=== PATIENT | male | born 1985 | race Caucasian/White ===

== ENCOUNTER 2019-09-18 15:21 | Outpatient (CLI) | payer OTHER, SELFPAY ==
--- NOTE | ~2019-09-18 | XR_ITS ---
EXAMINATION: XR lumbar spine 2-3V DATE: 09/18/2019 15:40 INDICATION: Left low back pain TECHNIQUE: Anteroposterior and lateral views of the lumbar spine, and cone-down lateral view of the l umbosacral junction were obtained. COMPARISON: None. FINDINGS: There are 4 nonrib-bearing lumbar segments. Alignment is normal. Vertebral body and disc heights are normal. No significant lumbar facet osteoarthritis appreciated. Sacrum and bilateral sacroiliac joint s are normal. Normal bowel gas pattern. IMPRESSION: 1. Developmental variant four nonrib-bearing lumbar segments. Otherwise unremarkable lumbar spine rad iographs. Reviewed, dictated and finalized at location A. 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 Developmental variant four nonrib-bearing lumbar segments. Otherwise unremar kable lumbar spine radiographs.
== END 2019-09-18 15:22 | disposition home or self-care (01) ==
LOC: CHSIMG 15:23
PROVIDERS: PCP Internal Medicine; Visit Provider Nurse Practitioner Family
DX: M54.5 Low back pain (principal)
CPT/HCPCS: 72100

== ENCOUNTER 2020-10-06 17:07 | Outpatient (CLI) | payer OTHER, SELFPAY ==
--- NOTE | ~2020-10-06 | XR_ITS ---
EXAMINATION: XR_CERV2-3V_CR DATE: 10/06/2020 17:27 INDICATION: Neck pain. Right shoulder pain. TECHNIQUE: 3 views of cervical spine were obtained. COMPARISON: None. FINDINGS: There is 8 degrees levocurvature of cervicothoracic spine. There is kyphosis of cervical sp ine. There is 2 mm retrolisthesis of C5 on C6. Vertebral body heights are normal. There is mildly dec reased disc height at C5-C6. At C5-C6, there is moderate bilateral uncovertebral joint osteoarthritis . The facet joints are unremarkable. There is mild central canal stenosis at C5-C6. IMPRESSION: 1. Mild cervical spondylosis. Reviewed, dictated and finalized at location A. 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
--- NOTE | ~2020-10-06 | XR_ITS ---
EXAMINATION: XR shoulder RT min 2V DATE: 10/06/2020 17:27 INDICATION: Right shoulder pain. TECHNIQUE: 4 views of right shoulder were obtained. COMPARISON: None. FINDINGS: Bone alignment is normal. No fracture. Joint spaces are well maintained. IMPRESSION: 1. Normal right shoulder. Reviewed, dictated and finalized at location A. 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 Normal right shoulder.
== END 2020-10-06 17:08 | disposition home or self-care (01) ==
LOC: CHSLAB 17:10
PROVIDERS: PCP Internal Medicine; Visit Provider Internal Medicine
DX: M25.511 Pain in right shoulder (principal); M54.2 Cervicalgia; M47.812 Spondylosis without myelopathy or radiculopathy, cervical region
CPT/HCPCS: 72040; 73030

== ENCOUNTER 2020-10-12 16:54 | Outpatient (RCR) | payer OTHER, SELFPAY ==
[2020-10-12 17:00] VITALS: BP_SYST 170
--- NOTE | 2020-10-12 18:06 | PTOPEVAL ---
Thank you for referring Eugene Borges to [facility].? The patient is scheduled to be seen for therapy? __2__x/week for 8 visits. Please review, sign, date and return this plan of care YRIS. I agree with and certify that the following plan of care is medically necessary. Referring Physician Date Admitting Provider: Attending Provider: Rc Arroyo MD Referring Provider: *PT Outpatient Evaluation Start: 10/12/20 12:45 Freq: Status: Active Protocol: Document 10/12/20 17:00 ACR (Rec: 10/12/20 18:05 ACR [id number]) Therapy Assessment Status Assessment Status Assessment Status Evaluation Evaluation Information Problem Onset 09/14/20 Subjective Information Patient states that his Query Text:As Reported By Patient/ shoulder pain started a little Family over a year ago, but had a recent flare up about a month ago that led him to go to the doctor. He had an x-ray done which showed some swelling in the shoulder and arthritis in the R neck. Patient reports he has had some radicular pain that goes into the hand and last week he dropped a drill while working. Patient states that working overhead, sleeping, looking down and looking up (tieing his shoes) all bother him. 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 Hand Dominance Right Activity of Daily Living Ability Independent Indoor/Home Mobility Independent Community Mobility Independent Stairs Ability Independent Functional Cognition (Planning, Shopping Independent , Taking Medications) Cooking Yes Cleaning Yes Laundry Yes Shopping Yes Driving Yes Pain Assessment Timing of Pain Assessment Timing of Pain Assessment Assessment Pain Scale Pain Scale Used Numeric (1 - 10) Self Report Pain Assessment Right Neck Reported Pain Level 2 Pain Description Aching,Dull,Numbness,Stabbing, Tingling Lowest Pain Intensity 2 Greatest Pain Intensity 4 Pain Score Pain Score 2: Self Report Interventions Used Interventions Used By Clinicians Activity or ADL's,Education,
--- NOTE | 2020-12-02 08:28 | PCPTNOTE ---
The patient participated in 3 visits for neck pain with radicular symptoms. He was called and he stated he would like to be discharged at this time due to having too much going on at this time. Please refer to last treatment note for patient's discharge status. Thank you, ADAMA DentonT
== END 2020-11-02 09:13 | disposition home or self-care (01) ==
LOC: CHSPT 16:54
PROVIDERS: PCP Internal Medicine; Visit Provider Internal Medicine
DX: M54.2 Cervicalgia (principal); M25.511 Pain in right shoulder
CPT/HCPCS: 97014; 97110; 97140; 97161; G0283

== ENCOUNTER 2021-09-09 15:20 | Outpatient (CLI) | payer OTHER, SELFPAY ==
--- NOTE | ~2021-09-09 | US_ITS ---
US retroperitoneal comp 09/09/2021 15:35 Procedure: Realtime transabdominal ultrasound of the kidneys and bladder. Indication: Renal insufficiency Comparison: No prior studies for comparison. Findings: Renal echotexture is normal bilaterally without hydronephrosis, contour deforming mass or r enal calculus. The right kidney measures 9.1 cm and left kidney measures 9.4 cm. Bladder wall is mil dly prominent, although not well distended. Impression: 1: Unremarkable renal ultrasound. No stones, masses or hydronephrosis. Reviewed, dictated and finalized at location B. 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 No stones, masses or hydronephrosis.
== END 2021-09-09 15:21 | disposition home or self-care (01) ==
LOC: CHSIMG 15:22
PROVIDERS: PCP Internal Medicine; Visit Provider Internal Medicine
DX: N28.9 Disorder of kidney and ureter, unspecified (principal)
CPT/HCPCS: 76770

== ENCOUNTER 2022-10-10 10:15 | Outpatient (CLI) | payer OTHER, SELFPAY ==
--- NOTE | ~2022-10-10 | XR_ITS ---
Lumbosacral Spine: AP and lateral views Clinical History: Pain Findings: The normal lordotic curve is maintained. The vertebral bodies and posterior elements are i ntact. The intervertebral disc spaces are preserved. The sacroiliac joints are normally outlined. Impression: No significant abnormality. Reviewed, dictated and finalized at [facility]. 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
== END 2022-10-10 10:16 | disposition home or self-care (01) ==
LOC: CHSIMG 10:17
PROVIDERS: PCP Internal Medicine; Visit Provider Internal Medicine
DX: M54.50 Low back pain, unspecified (principal)
CPT/HCPCS: 72100

== ENCOUNTER 2022-10-16 15:55 | Outpatient (RCR) | payer OTHER, SELFPAY ==
--- NOTE | 2022-10-16 16:30 | PTOPEVAL1 ---
Assessment and note entered by Jaciel Hinds Evaluation Information Assessment Status Evaluation Diagnosis low back pain Onset 09/26/22 Subjective Information Pt. reports he was carrying drywall into a basement about 3 weeks ago and began to notices low back pain after. He describes pain across the low back, but is worst on the left side. He states that pain is most intense with changing positions. He notices pain most when getting out of a chair or standing for too long. 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 He has attempted to make modfications in his work and avoids any heavy lifting at this time. He states that pain wakes him at night, especially if he roles. He states that he has not had any previous back pain. He states that his goal for therapy is to reduce his low back pain. Reported Pain Level Pain Score 5: Self Report Assessment PT Clinical Summary Pt. is a 37 year old male who enters the clinic with low back pain. He presents with impaired flexibility, impaired strength, impaired postural awareness, and pain. continued skilled PT is indicated in order to improve these areas to allow the pt. to be able to complete all IADL's with improved comfort and efficiency. Plan of Care Interventions Electrical Stimulation,Hot Pack/Cold Pack,Manual Therapy,Neuro Re-education,Patient/Caregiver Educati,Therapeutic Activities,Therapeutic Exercise,Self-Care/Home Management PT Services Indicated Yes Treatment Frequency and 3x/week x 12 visits Duration These treatments will address the objective and functional deficits as defined above. The patient will be advanced safely and appropriately in order for the patient to progress towards his/her prior level of function. Additional exercises will be introduced and as well as a comprehensive home exercise program upon discharge, if needed, ?to ensure carryover of functional gains achieved in the clinic. This treatment plan has been reviewed and agreement upon by the patient.
--- NOTE | 2022-11-14 16:15 | PTOPEVAL1 ---
Assessment and note entered by Jaciel Hinds Evaluation Information Assessment Status Progress Diagnosis low back pain Onset 09/26/22 Subjective Information Pt. reports that he is feeling better. He still notes most pain with long periods of standing. He continues to describe pain across the low back. He reports that he was able to participate in a fishing tournament over the weekend and noted he could stand longer before expereincing pain. His goal remains to decrease his low back pain. Reported Pain Level Pain Score 2: Self Report Assessment PT Clinical Summary Pt. has attended a total of 9 treatment sessions. He has demonstrated improvemet in reports of pain , as well as strength. Pt. continues to present with mild discomfort and has recently been advanced regarding postural awareness. Continue with remaining 3 visits on current POC to further advance strength. Plan of Care Interventions Electrical Stimulation,Hot Pack/Cold Pack,Manual Therapy,Neuro Re-education,Therapeutic Activities, Therapeutic Exercise PT Services Indicated Yes Treatment Frequency and Continue for 3 remaining visits focused on core Duration strength and postural awareness These treatments will address the objective and functional deficits as defined above. The patient will be advanced safely and appropriately in order for the patient to progress towards his/her prior level of function. Additional exercises will be introduced and as well as a comprehensive home exercise program upon discharge, if needed, ?to ensure carryover of functional gains achieved in the clinic. This treatment plan has been reviewed and agreement upon by the patient.
--- NOTE | 2022-11-26 08:13 | PTOPREEVAL ---
Assessment and note entered by JT File, PT Evaluation Information Assessment Status Re-evaluation Diagnosis low back pain Onset 09/26/22 Subjective Information patient reports he feels alright this date. he reports nothing hurts when he is in PT, but reports he continues to have increased pain in the lower back with getting out of a chair/couch at home. he reports he has not returned to his prior level lifting. except for today, he reports he has had no pain for the last 5 days. Assessment PT Clinical Summary mr. crawford presents to skilled PT for his 12th skilled therapy visit. although today his pain is increased, he reports less pain over the last week . he has adjusted his work activities to not require any daily lifting. however, he still struggles with transfers in and out of chair/couch at home. he has made progress towards goals, but has met less than 50% of goals thus far. he would benefit from continued skilled PT to further work on return to his full PLOF/QOL. Plan of Care Interventions Electrical Stimulation,Hot Pack/Cold Pack,Manual Therapy,Neuro Re-education,Therapeutic Activities, Therapeutic Exercise PT Services Indicated Yes Treatment Frequency and continue skilled PT 2x weekly for 4 more visits Duration These treatments will address the objective and functional deficits as defined above. The patient will be advanced safely and appropriately in order for the patient to progress towards his/her prior level of function. Additional exercises will be introduced and as well as a comprehensive home exercise program upon discharge, if needed, ?to ensure carryover of functional gains achieved in the clinic. This treatment plan has been reviewed and agreement upon by the patient.
--- NOTE | 2022-12-22 16:52 | PTOPREEVAL ---
Assessment and note entered by Telma Denis DPT Evaluation Information Assessment Status Re-evaluation Diagnosis low back pain Onset 09/26/22 Subjective Information Patient reports he had an MRI done and the MD wants him to resume PT. Patient reports if pain does not improve with they will talk about surgery . MRI shows disc extrusion at L5-S1 with S1 nerve root effected. He reports difficulty with bending down, squatting and sitting for prolonged periods . Patient to return to MD in 2 months Reported Pain Level Pain Score 3: Self Report Assessment PT Clinical Summary Patient returns to PT today after having an MRI that showed disc extrusion at L5-S1. He presents with B hip weakness, decreased LE flexibility and decreased lumbar spine ROM limiting his ability to squat for house hold activities and sit for long periods of time. He would benefit from skilled PT to address impairments and return to PLOF. Plan of Care Interventions Electrical Stimulation,Hot Pack/Cold Pack,Manual Therapy,Neuro Re-education,Therapeutic Activities, Therapeutic Exercise PT Services Indicated Yes Treatment Frequency and 2x weekly for 10 visits Duration These treatments will address the objective and functional deficits as defined above. The patient will be advanced safely and appropriately in order for the patient to progress towards his/her prior level of function. Additional exercises will be introduced and as well as a comprehensive home exercise program upon discharge, if needed, ?to ensure carryover of functional gains achieved in the clinic. This treatment plan has been reviewed and agreement upon by the patient.
== END 2023-01-09 19:00 | disposition still patient (30) ==
LOC: CHSPT 15:55
PROVIDERS: PCP Internal Medicine; Visit Provider Internal Medicine
DX: M54.50 Low back pain, unspecified (principal)
CPT/HCPCS: 97014; 97110; 97112; 97140; 97161; G0283

== ENCOUNTER 2022-12-14 07:56 | Outpatient (CLI) | payer OTHER, SELFPAY ==
--- NOTE | ~2022-12-14 | MR_ITS ---
EXAMINATION: MR lumbar spine wo con DATE: 12/14/2022 09:04 INDICATION: Low back pain post lifting injury 2 1/2 weeks prior. TECHNIQUE: Magnetic resonance imaging (MRI) of the lumbar spine was performed without intravenous con trast. Sequences included sagittal T2-weighted FSE, sagittal T2-weighted FS FSE, sagittal T1-weighted FSE, and axial T2-weighted FSE. COMPARISON: Radiographs dated 10/10/2022 FINDINGS: There are 4 nonrib-bearing lumbar segments. Alignment is normal. Vertebral body heights are normal. Normal marrow signal. Mild disc desiccation and mild disc height loss with annular fissure at L4-S1. The conus medullaris terminates at T12. There is normal signal in the caudal spinal cord. Paravertebr al soft tissues are unremarkable. The following disc levels are specifically discussed: T11-T12: The disc does not extend beyond the endplate margins. There is no facet osteoarthritis. Ther e is no neural foraminal stenosis. There is no central canal stenosis. T12-L1: The disc does not extend beyond the endplate margin. There is no facet joint osteoarthritis. There is no neural foraminal stenosis. There is no central canal stenosis. L1-L2: Disc is mildly bulging. There is no facet joint osteoarthritis. There is mild bilateral neural foraminal stenosis due in part to short pedicles. There is no central canal stenosis. L2-L3: Disc is minimally bulging. There is no facet joint osteoarthritis. There is mild bilateral lyn ral foraminal stenosis resulting primarily from short pedicles. There is no central canal stenosis. L3-L4: Disc is mildly bulging. There is no facet joint osteoarthritis. There is wall to moderate bila teral neural foraminal stenosis due in part to short pedicles. There is no central canal stenosis. L4-S1: Annular fissure with left paracentral disc extrusion with disc material extending to right and 3 mm cephalad and caudal to the endplate margins and which narrows the left lateral recess exerting mass effect upon the traversing left S1 nerve root. There is mild left facet joint osteoarthritis. Th ere is mild bilateral neural foraminal stenosis. There is mild central canal stenosis. IMPRESSION: 1. There are only 4 nonrib-bearing lumbar segments which is normal developmental variant. 2. Mild spondylosis at L4-S1 with annular fissure and left paracentral disc extrusion which exerts ma ss effect upon the traversing left S1 nerve root. Correlate clinically for muscle weakness of plantar flexion, sensory change of the lateral foot and small toe, and depressed ankle reflex. 3. Minimal spondylosis in the more cephalad lumbar spine with neural foraminal stenosis at a few leve ls as detailed above due to in part to congenitally small pedicles. Reviewed, dictated and finalized at location L. IMPRESSION: 1. There are only 4 nonrib-bearing lumbar segments which is normal developmenta l variant. 2. Mild spondylosis at L4-S1 with annular fissure and left paracentral disc ext rusion which exerts mass effect upon the traversing left S1 nerve root. Correla te clinically for muscle weakness of plantar flexion, sensory change of the lat eral foot and small toe, and depressed ankle reflex. 3. Minimal spondylosis in the more cephalad lumbar spine with neural foraminal stenosis at a few levels as detailed above due to in part to congenitally small pedicles.
== END 2022-12-14 07:57 | disposition home or self-care (01) ==
LOC: CHSIMG 07:58
PROVIDERS: PCP Internal Medicine; Visit Provider Nurse Practitioner Family
DX: M54.50 Low back pain, unspecified (principal); M43.06 Spondylolysis, lumbar region
CPT/HCPCS: 72148

== ENCOUNTER 2023-01-16 16:04 | Outpatient (RCR) | payer OTHER, SELFPAY | END 2023-02-07 10:23 | disposition home or self-care (01) | LOC: CHSPT 16:04 | PROVIDERS: PCP Internal Medicine; Visit Provider Internal Medicine | DX: M54.50 Low back pain, unspecified (principal) | CPT/HCPCS: 97110; 97112 ==

== ENCOUNTER 2025-01-28 15:45 | Emergency (ER) | payer BC, SELFPAY ==
[2025-01-28 15:45] VITALS: BP 126/71; PULSE 63; RESP 16; TEMP 36.8; O2SAT 99
--- NOTE | 2025-01-28 16:00 | ED_ITS ---
HPI - Skin/Abscess/Foreign Bdy General Chief complaint: Skin/Abscess/Foreign Body Stated complaint: fishhook in hand Time Seen by Provider: 01/28/25 15:59 Source: patient Mode of arrival: ambulatory Limitations: no limitations History of Present Illness HPI narrative: 39-year-old male with a history depression, CKD, anemia presents to the ED with -- facial cut in his left hypothenar eminence. Onset (ago): minute(s) ( 30 minutes ago) Tetanus up to date: no Relieving factors: none Exacerbating factors: none Treatments prior to arrival: none Related Data Allergies Allergy/AdvReac Type Severity Reaction Status Date / Time sulfamethoxazole (From Allergy Mild Rash Verified 01/28/25 15:58 ) trimethoprim (From ) Allergy Mild Rash Verified 01/28/25 15:58 Penicillins Allergy Unknown Unknown Verified 01/28/25 15:58 Review of Systems Review of Systems: All systems reviewed & are unremarkable except as noted in HPI and below PMFSH Past Medical History Medical History Anemia CKD (chronic kidney disease) Depression Exam Narrative: vitals stable Const: General: no acute distress Orientation/consciousness: patient oriented x3 Limitations: no limitations HENMT: Head: normal to inspection Ears: external ears normal Face/Nose/Sinus: Normal external nose present Face and sinus: normal facial exam Mouth: Yes Normal oral and palatal mucosa present Throat: posterior oropharynx normal Eyes: Conjunctivae: conjunctivae normal Pupils: Equal, round and reactive pupils present EOM: EOMs intact bilaterally Neck: Neck: no lymphadenopathy and no meningeal signs Chest: Chest palpation & inspection: normal inspection of the chest Resp: Effort & Inspection: normal respiratory effort Auscultation: clear to auscultation bilaterally Cardio: Rate: regular rate Rhythm: regular rhythm GI: GI Palp: Yes Soft to palpation Auscultation: normal bowel sounds Other: tenderness/ rigidity /rebound. : General: Yes no CVA tenderness Back/Spine/Pelvis: Back: no CVA tenderness Skin: General skin exam: normal color Rashes: no rashes Wounds: no wounds Neuro: General: patient oriented x3, moves all extremities, no meningeal signs, no focal motor deficits and CN's II-XI intact bilaterally Speech: normal speech Extrem: General: normal to inspection and no clubbing, cyanosis or edema Psych: Mental Status: mental status grossly normal Affect: normal affect Attitude: cooperative Course Course Emergency Course: Left hand fishhook Vital Signs Vital signs: Vital Signs Temperature 36.8 C 01/28/25 15:45 Pulse Rate 63 01/28/25 15:45 Respiratory Rate 16 01/28/25 15:45 Blood Pressure 126/71 01/28/25 15:45 Pulse Oximetry 99 01/28/25 15:45 Oxygen Delivery Room Air 01/28/25 15:45 Temperature 36.8 C 01/28/25 15:45 Pulse Rate 63 01/28/25 15:45 Respiratory Rate 16 01/28/25 15:45 Blood Pressure 126/71 01/28/25 15:45 Pulse Oximetry 99 01/28/25 15:45 Oxygen Delivery Room Air 01/28/25 15:45 Procedures Foreign Body Removal Foreign Body #1: Foreign Body Removal Date: 01/28/25 Foreign Body Removal Time: 16:06 Site: left and upper extremity Description of foreign body: fish hook Sedation/Analgesia: none and other ( local infiltration with 1% lidocaine.) Technique: removal with forceps MDM - Skin/Abscess/Foreign Bdy MDM Narrative Medical decision making narrative: Left hand fishhook-- removed Differential Diagnosis Differential diagnosis: Likely other ( foreign body left hand) Discharge Plan Discharge Clinical Impression: Foreign body of hand, left Qualifiers: Encounter type: initial encounter Qualified Code(s): S60.552A - Superficial foreign body of left hand, initial encounter Patient Disposition: Home Condition: Stable Instructions: Antibiotic Form Patient Language: [place]an Follow-up/Referrals: Rc Arroyo MD [Primary Care Provider] - Time of Disposition: 16:17
[2025-01-28] MEDS: LIDOCAINE 1% LOCAL INJ 10 ML VIAL 3 ML INFILTRATE (16:11)
[2025-01-28] MEDS: TETANUS,DIPHTHERIA,AC PERTUSSIS ADULT 0.5 ML (ADACEL) IM (16:12)
--- OUTSIDE RECORDS SUMMARY | 2025-01-28 17:27 | XMS_ITS | Referral Summary ---
Author Organization [facility] Medical Office Building A Address [address] [place] [address] Care Team Providers Care Classroom Teacher Name Role Phone Rc Arroyo MD Primary Care Provider Encounters Date Type Department Care Team Description 12/26/2024 9:15 AM CDT Office Visit [facility] - [address] [address] Crista Forman DO Otitis externa, fungal, left ear (Primary Dx) 12/19/2024 8:45 AM CDT Office Visit [facility] [address], [place] [address] Crista Forman DO Otitis externa, fungal, left ear (Primary Dx) from Last 3 Months Allergies Active Allergy Reactions Criticality Noted Date Comments Penicillins Hives Reaction: Hives, Sulfamethoxazole Hives Reaction: hives, Trimethoprim Hives Reaction: hives, Medications clotrimazole (LOTRIMIN) 1 % external solutionIndicat ions:Otitis externa, fungal, left ear Apply topically 2 (two) times a day 30 mL 5 12/20/19 26 Active Active Problems Problem Noted Date Diagnosed Date Myringitis 07/03/2023 Assessment & Plan (08/01/2023 1:41 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): Avoid ear cleaning techniques Avoid water to ears May wear hearing aids Follow up with further ear drainage Assessment & Plan (07/03/2023 3:12 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): Avoid ear cleaning techniques Avoid water to ears Avoid hearing aid in the left ear Start Levaquin daily with a meal Stay well hydrated Consider starting ear drops based on culture results taken today from the left ear Otitis externa, fungal, left ear 06/18/2023 Assessment & Plan (12/26/2024 9:16 AM CDT): Continue Lotrimin for one more week Avoid ear cleaning techniques Avoid water to ears Follow up as needed Restart Hearing aid in one week Assessment & Plan (12/19/2024 1:00 PM CDT): Lotrimin 7 drops into the Left ear twice daily for 14 days How to Use Ear Drops discussed and Handout provided Assessment & Plan (06/18/2023 1:59 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): Nystatin powder placed today to the left ear Avoid ear cleaning techniques Avoid water to ears Avoid hearing aid in the left ear until follow up Follow up in 2-3 weeks to recheck left ear Start lotrimin drops if no improvement Otorrhea of left ear 12/12/2022 Assessment & Plan (04/09/2024 8:27 AM CDT): Avoid ear cleaning techniques Avoid water to ears Continue hearing aids follow up as needed Assessment & Plan (02/21/2024 1:23 PM CDT): Avoid ear cleaning techniques Avoid water to ears Restart use of Left sided Hearing aid in one week Doxycycline twice daily for 14 days Follow up in one month for left ear check Assessment & Plan (08/01/2023 1:41 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): Avoid ear cleaning techniques Avoid water to ears May wear hearing aids Follow up with further ear drainage Assessment & Plan (07/03/2023 3:12 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): Avoid ear cleaning techniques Avoid water to ears Avoid hearing aid in the left ear Start Levaquin daily with a meal Stay well hydrated Consider starting ear drops based on culture results taken today from the left ear Assessment & Plan (01/02/2023 3:07 PM CDT): Resolved today Avoid ear cleaning techniques Continue hearing aids Follow up in one year, earlier with ear drainage Assessment & Plan (12/12/2022 4:25 PM CDT): Prescription medications sent to Pharmacy today: Ciprofloxacin and Dexamethasone 5 drops into EACH EAR, NOT EYE, twice daily for 14 days Follow up in Office to recheck Avoid ear cleaning techniques Avoid water to ears Continue hearing aids, make sure to cleanse hearing aids at night and make sure they dry off at night How to Use Ear Drops discussed and Handout provided Thrombosed external hemorrhoid 03/23/2017 Assessment & Plan (03/23/2017 11:58 AM CDT): Primary care provider was called to the bedside to review physical exam findings to determine whether not surgical referral is indicated. Primary care provider completed additional rectal exam and recommended conservative measures with warm water soaks 2 to 3 times a day. Topical Anusol-HC rectal cream. Avoid straining for bowel movements. Avoid heavy lifting. Closely follow up here for repeat evaluation in 1 week. Although, he has been instructed to contact the office in the interim with any additional questions or concerns. Tobacco dependence syndrome 12/27/2013 Overview (11/16/2016): TOBACCO USE DISORDER Mitral valve disease 12/27/2013 Overview (11/17/2016): MITRAL VALVE DIS NEC/NOS Depression 09/19/2012 Overview (11/17/2016): Depression Immunizations Immunization Administration Dates Next Due Hep B, Adolescent or Pediatric 05/13/1998,1997 Td, adsorbed 03/08/1998 Social History Tobacco Use Types Packs/Day Years Used Date Smoking Tobacco: Every Day Smokeless Tobacco: Never Tobacco Cessation:Ready to Q uit: Not Asked; Counseling Given: Not Answered Alcohol Use Standard Drinks/Week Comments Yes 0 (1 standard drink = 0.6 oz pur e alcohol) Sex and Gender Information Value Date Recorded Sex Assigned at Not on file Legal Sex Male 11:54 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 Gender Identity Not on file Sexual Orientation Not on file Last Filed Vital Signs Vital Sign Reading Time Taken Comments Blood Pressure 122/78 04/09/2024 8:17 AM CDT Pulse 73 04/09/2024 8:17 AM CDT Temperature 36 C (96.8 F) 04/09/2024 8:17 AM CDT Respiratory Rate 18 02/21/2024 1:01 PM CDT Oxygen Saturation 99% 04/09/2024 8:17 AM CDT Inhaled Oxygen Concentration - - Weight 64.4 kg (142 lb) 12/19/2024 8:36 AM CDT Height 177.8 cm (5' 10) 12/19/2024 8:36 AM CDT Body Mass Index 20.37 12/19/2024 8:36 AM CDT Plan of Treatment Not on file Insurance [employer] OOS Care Teams Classroom Teacher Relationship Specialty Start Date End Date Rc Arroyo MD PCP - General Internal Medicine 01/02/23
--- OUTSIDE RECORDS SUMMARY | 2025-01-28 17:27 | XMS_ITS | Clinical Summary ---
Author Organization [facility] Address [address], [address] [address] Phone Care Team Providers Care Communications Coordinator Name Role Phone Rc Arroyo MD Primary Care Provider [phone] Allergies Active Allergy Reactions Criticality Noted Date Comments Penicillins Hives 01/01/2019 Reaction: Hives, Sulfamethoxazole Hives 01/01/2019 Reaction: hives, Trimethoprim Hives 01/01/2019 Reaction: hives, Medications montelukast (SINGULAIR) 10 MG Tablet 12/02/2018 Active sertraline (ZOLOFT) 50 MG Tablet 12/25/2018 Active morphine 100 MG/5ML SolutionIndicat ions:Terminal care Take 0.25 mL by mouth every 3 hours as needed for Moderate or more severe pain. 30 mL 06/30/2024 Active LORazepam (ATIVAN) 0.5 MG TabletIndicatio ns:Terminal care Take 1 Tablet by mouth every 4 hours as needed for Anxiety. 30 Tablet 06/30/2024 Active Social History Tobacco Use Types Packs/Day Years Used Date Smoking Tobacco: Every Day Cigarettes 1 18 Smokeless Tobacco: Never Alcohol Use Standard Drinks/Week Comments Not Currently 0 (1 standard drink = 0.6 oz pur e alcohol) Sex and Gender Information Value Date Recorded Sex Assigned at Not on file Legal Sex Male 7:57 PM CDT Gender Identity Not on file Sexual Orientation Not on file Last Filed Vital Signs Vital Sign Reading Time Taken Comments Blood Pressure 110/80 01/01/2019 10:37 AM CDT Pulse 71 01/01/2019 10:37 AM CDT Temperature 36.6 C (97.8 F) 01/01/2019 10:37 AM CDT Respiratory Rate 16 01/01/2019 10:37 AM CDT Oxygen Saturation 98% 01/01/2019 10:37 AM CDT Inhaled Oxygen Concentration - - Weight 68 kg (150 lb) 01/01/2019 10:37 AM CDT Height 177.8 cm (5' 10) 01/01/2019 10:37 AM CDT Body Mass Index 21.52 01/01/2019 10:37 AM CDT Plan of Treatment Health Maintenance Due Date Last Done Comments Hepatitis C Virus (HCV) Screening 1983 Human Papillomavirus (HPV) Immunization (1 - Male 3-dose series) 1998 Hepatitis B Immunization (1 of 3 - 19+ 3-dose series) 2002 SARS-COV-2 Immunization ( - season) 2024 Influenza Immunization (Seas on Ended) 2025 Respiratory Syncytial Virus (RSV) Immunization (Adult) (1 - 1-dose 75+ series) 2058 DTaP/Tdap/Td Immunization Discontinued 01/23/2017 TdaP Immunization Completed 01/23/2017 Meningococcal Immunization (ACWY) Aged Out No longer eligible based on patient's age to complete this topic Pneumococcal Immunization Combined Aged Out No longer eligible based on patient's age to complete this topic Rotavirus Immunization Aged Out No lo nger eligible based on patient's age to complete this topic Insurance MEDICAID AETNA [facility] Care Teams Communications Coordinator Relationship Specialty Start Date End Date Rc Arroyo MD [address] [id number] PCP - General Internal Medicine 12/06/18
--- OUTSIDE RECORDS SUMMARY | 2025-01-28 17:27 | XMS_ITS | Clinical Summary ---
Author Organization [facility] Medical Office Building A Address [address] [place] [address] Care Team Providers Care Diesel Plant Operator Name Role Phone Rc Arroyo MD Primary Care Provider [phone] Allergies Active Allergy Reactions Criticality Noted Date Comments Penicillins Hives Reaction: Hives, Sulfamethoxazole Hives Reaction: hives, Trimethoprim Hives Reaction: hives, Medications clotrimazole (LOTRIMIN) 1 % external solutionIndicat ions:Otitis externa, fungal, left ear Apply topically 2 (two) times a day 30 mL 5 12/20/19 26 Active Active Problems Problem Noted Date Diagnosed Date Myringitis 07/03/2023 Assessment & Plan (08/01/2023 1:41 PM COMPUTED TOMOGRAPHY TECHNOLOGIST): Avoid ear cleaning techniques Avoid water to ears May wear hearing aids Follow up with further ear drainage Assessment & Plan (07/03/2023 3:12 PM COMPUTED TOMOGRAPHY TECHNOLOGIST): Avoid ear cleaning techniques Avoid water to [...] provided Assessment & Plan (06/18/2023 1:59 PM COMPUTED TOMOGRAPHY TECHNOLOGIST): Nystatin powder placed today to the left [...] check Assessment & Plan (08/01/2023 1:41 PM COMPUTED TOMOGRAPHY TECHNOLOGIST): Avoid ear cleaning techniques Avoid water to ears May wear hearing aids Follow up with further ear drainage Assessment & Plan (07/03/2023 3:12 PM COMPUTED TOMOGRAPHY TECHNOLOGIST): Avoid ear cleaning techniques Avoid water to [...] DIS NEC/NOS Depression 09/19/2012 Overview (11/17/2016): Depression Encounters Date Type Department Care Team Description 12/26/2024 9:15 AM CDT Office Visit [facility] - [address] [place] [address] Crista Forman, Otitis externa, fungal, left ear (Primary Dx) 12/19/2024 8:45 AM CDT Office Visit [facility] - [address] [place] [address] Crista Forman, Otitis externa, fungal, left ear (Primary Dx) from Last 3 Months Immunizations Immunization Administration Dates Next Due Hep B, Adolescent or Pediatric 05/13/1998,1997 Td, adsorbed 03/08/1998 Surgical History Surgery Date Site/Laterality Comments MYRINGOTOMY W/TYMPANOSTOMY TUBE INSERTION myringotomy tubes Medical History Medical History Date Comments Hx Other Medical ear drum replac ements 11 years ago Hx Other Medical BL Ear surgery Family History Medical History Relation Name Comments Other Brother 3 Alive and well; Other Brother 4 Alive and well; Other Father 2 Alive and well; Prostate cancer Father 2 Cancer, pros denny; Other Mother 2 Alive and well; Other Sister obstructive hyd rocephalus; Cause of : obstructive hydrocephalus Relation Name Status Comments Brother 1 Alive Brother 2 Alive Brother 3 Brother 4 Father 1 Alive Father 2 Mother 1 Alive Mother 2 Sister Social History Tobacco Use Types Packs/Day Years Used Date Smoking Tobacco: Every Day Smokeless Tobacco: Never Tobacco Cessation:Ready to Q uit: Not Asked; Counseling Given: Not Answered Alcohol Use Standard Drinks/Week Comments Yes 0 (1 standard drink = 0.6 oz pur e alcohol) Sex and Gender Information Value Date Recorded Sex Assigned at Not on file Legal Sex Male 11:54 PM COMPUTED TOMOGRAPHY TECHNOLOGIST Gender Identity Not on file Sexual Orientation Not on file Obstetrics History Last Filed Vital Signs Vital Sign Reading [...] 12/19/2024 8:36 AM CDT Plan of Treatment Health Maintenance Due Date Last Done Comments Hepatitis C Screening 1983 Prostate Cancer Screening-PSA 1983 Varicella Vaccines (1 of 2 - 13+ 2-dose series) 1996 Regular Well Visit/Exam 18-64 2001 Pneumococcal vaccine <65 (1 of 2 - PCV) 2002 Depression Screening 09/07/2018 09/07/2017, 03/23/2017 Influenza Vaccine (Season Ended) 2025 DTaP/Tdap/Td Vaccine (2 - Td or Tdap) 01/23/2027 01/23/2017, 03/08/1998 Hepatitis B Screening Completed 05/13/1998 , 03/08/1998 HPV Vaccines Aged Out No longer eligi ble based on patient's age to complete this topic Insurance [employer] OOS Care Teams Diesel Plant Operator Relationship Specialty Start Date End Date Rc Arroyo MD PCP - General Internal Medicine 01/02/23
== END 2025-01-28 16:25 | disposition home or self-care (01) ==
LOC: CHSED 16:25
PROVIDERS: Emergency Provider Internal Medicine Critical Care Medicine; PCP Internal Medicine
DX: S60.552A Superficial foreign body of left hand, initial encounter (principal); N18.9 Chronic kidney disease, unspecified; Z23 Encounter for immunization; W45.8XXA Other foreign body or object entering through skin, initial encounter
CPT/HCPCS: 90471; 90715; 99282; J2003

== ENCOUNTER 2025-04-28 09:25 | Outpatient (CLI) | payer BC, SELFPAY ==
[2025-04-28 09:39] LABS: Hematocrit 37.0 % (40.0-54.0); Hemoglobin 12.3 g/dL (14.0-18.0); Mean Corpuscular HGB Conc 33.2 g/dL (32-36); Mean Corpuscular Hemoglobin 31.5 pg (27.0-31.0); Mean Corpuscular Volume 94.9 fL (78.0-102.0); Platelet Count Result 226 K/mm3 (150-420); Red Blood Count 3.90 M/mm3 (4.70-6.10); White Blood Count 4.5 K/mm3 (4.8-10.8)
[2025-04-28 09:40] LABS: Add Urine Microscopic? NO; Appearance Urine Clear (Clear); Glucose Urine UA Negative (Negative); Leukocyte Esterase Ur Negative (Negative); Nitrate Urine Negative (Negative); Specific Grav Ur 1.010 (1.010-1.020)
[2025-04-28 10:03] LABS: Alanine Aminotransferase 14 U/L (6-50); Albumin Level 4.9 g/dL (3.5-5.1); Alkaline Phosphatase 81 U/L (38-126); Anion Gap 10 mmol/L (4-12); Aspartate Amino Transferase 23 U/L (17-59); Bilirubin,Total 0.7 mg/dL (0.2-1.3); Blood Urea Nitrogen 19 mg/dL (9-20); Calcium 10.3 mg/dL (8.4-10.2); Carbon Dioxide 26 mmol/L (22-30); Chloride 105 mmol/L (98-107); Estimated Glomerular Filt Rate 38; Glucose 100 mg/dL (65-110); Magnesium 2.3 mg/dL (1.6-2.3); Osmolality Calculated 294 mOsm/kg (285-295); Potassium 5.3 mmol/L (3.4-5.0); Sodium 141 mmol/L (137-145); Total Protein 8.4 g/dL (6.3-8.2)
--- OUTSIDE RECORDS SUMMARY | 2025-04-28 10:45 | XMS_ITS | Clinical Summary ---
Author Organization [facility] Medical Office Building A Address [address] [place] [address] Care Team Providers Care Tool Distributor Name Role Phone Rc Arroyo MD Primary Care Provider [phone] Allergies Active Allergy Reactions Criticality Noted Date Comments Penicillins Hives Reaction: Hives, Sulfamethoxazole Hives Reaction: hives, Trimethoprim Hives Reaction: hives, Medications clotrimazole (LOTRIMIN) 1 % external solutionIndicat ions:Otitis externa, fungal, left ear Apply topically 2 (two) times a day 30 mL 5 12/20/19 26 Active Active Problems Problem Noted Date Diagnosed Date Myringitis 07/03/2023 Assessment & Plan (08/01/2023 1:41 PM KNIFE SETTER ASSEMBLER): Avoid ear cleaning techniques Avoid water to ears May wear hearing aids Follow up with further ear drainage Assessment & Plan (07/03/2023 3:12 PM KNIFE SETTER ASSEMBLER): Avoid ear cleaning techniques Avoid water to [...] provided Assessment & Plan (06/18/2023 1:59 PM KNIFE SETTER ASSEMBLER): Nystatin powder placed today to the left [...] check Assessment & Plan (08/01/2023 1:41 PM KNIFE SETTER ASSEMBLER): Avoid ear cleaning techniques Avoid water to ears May wear hearing aids Follow up with further ear drainage Assessment & Plan (07/03/2023 3:12 PM KNIFE SETTER ASSEMBLER): Avoid ear cleaning techniques Avoid water to [...] on file Legal Sex Male 11:54 PM KNIFE SETTER ASSEMBLER Gender Identity Not on file Sexual Orientation [...] <65 (1 of 2 - PCV) 2002 HPV Vaccines (1 - 3-dose SCDM series) 2010 Depression Screening 09/07/2018 09/07/2017, 03/23/20 17 Influenza Vaccine (#1) 2025 DTaP/Tdap/Td Vaccine (2 - Td or Tdap) 01/23/2027, 03/08/1998 Hepatitis B Screening Completed 05/13/1998, 998 Insurance [employer] OOS Care Teams Tool Distributor Relationship Specialty Start Date End Date Rc Arroyo MD PCP - General Internal Medicine 01/02/23
--- OUTSIDE RECORDS SUMMARY | 2025-04-28 10:45 | XMS_ITS | Clinical Summary ---
Author Organization [facility] Address [address], [address] [address] Phone Care Team Providers Care Factory Representative Name Role Phone Rc Arroyo MD Primary Care Provider [phone] Allergies Active Allergy Reactions Criticality Noted Date [...] Comments Hepatitis C Virus (HCV) Screening 1983 Hepatitis B Immunization (1 of 3 - 19+ 3-dose series) 2002 Human Papillomavirus (HPV) Immunization (1 - 3-dose SCDM series) 2010 Influenza Immunization (#1) 2025 SARS-COV-2 Immunization ( season) 2025 Respiratory Syncytial Virus (RSV) Immunization (Adult) [...] to complete this topic Insurance MEDICAID AETNA [facility] Care Teams Factory Representative Relationship Specialty Start Date End Date cR Arroyo MD [address] [phone] PCP - General Internal Medicine 12/06/18
== END 2025-04-28 09:26 | disposition home or self-care (01) ==
PROVIDERS: PCP Internal Medicine; Visit Provider Internal Medicine
DX: N18.30 Chronic kidney disease, stage 3 unspecified (principal)
CPT/HCPCS: 36415; 80053; 81003; 83735; 83970; 84100; 85027

== ENCOUNTER 2025-06-30 10:26 | Outpatient (CLI) | payer BC, SELFPAY ==
[2025-06-30 10:43] LABS: Add Urine Microscopic? NO; Appearance Urine Clear (Clear); Glucose Urine UA Negative (Negative); Leukocyte Esterase Ur Negative (Negative); Nitrate Urine Negative (Negative); Specific Grav Ur 1.010 (1.010-1.020)
[2025-06-30 10:57] LABS: Total Protein Urine Random 13 mg/dL; Ur Ttl Prot Creatinine Ratio 0.19 mg/mg (0-0.20)
[2025-06-30 11:02] LABS: Albumin Level 4.9 g/dL (3.5-5.1); Anion Gap 9 mmol/L (4-12); Blood Urea Nitrogen 15 mg/dL (9-20); Calcium 9.4 mg/dL (8.4-10.2); Carbon Dioxide 27 mmol/L (22-30); Chloride 106 mmol/L (98-107); Estimated Glomerular Filt Rate 37; Glucose 112 mg/dL (65-110); Osmolality Calculated 295 mOsm/kg (285-295); Potassium 4.8 mmol/L (3.4-5.0); Sodium 142 mmol/L (137-145)
[2025-07-01 15:09] LABS: Albumin 4.0 g/dL (2.9-4.4); Alpha-1-Globulin 0.2 g/dL (0.0-0.4); Alpha-2-Globulin 0.6 g/dL (0.4-1.0); Gamma Globulin 1.0 g/dL (0.4-1.8)
[2025-07-02 15:09] LABS: Albumin, U 20.5 % (.); Alpha-1-Globulin, U 1.4 % (.); Alpha-2-Globulin, U 13.3 % (.); Beta Globulin, U 38.4 % (.); Gamma Globulin, U 26.4 % (.)
[2025-07-02 16:08] LABS: ANA by IFA Rfx Titer/Pattern Negative (.)
[2025-07-02 18:08] LABS: Anti-GBM Antibodies <0.2 units (0.0-0.9)
== END 2025-06-30 10:27 | disposition home or self-care (01) ==
PROVIDERS: PCP Internal Medicine; Visit Provider Internal Medicine Nephrology
DX: N18.32 Chronic kidney disease, stage 3b (principal); R80.9 Proteinuria, unspecified; R30.0 Dysuria
CPT/HCPCS: 36415; 80069; 81003; 82570; 84155; 84156; 84165; 84166; 86037; 86038; 86160; 86225; 86364